=== PATIENT | male | born 1955 | race Caucasian/White ===

== ENCOUNTER 2023-12-20 08:50 | Outpatient (RCR) | payer OTHER, SELFPAY | END 2023-12-20 23:59 | disposition home or self-care (01) | LOC: RPT 08:50 | PROVIDERS: ATTENDING PHYSICIAN Family Medicine | DX: M25.50 Pain in unspecified joint (principal); M25.40 Effusion, unspecified joint; R53.1 Weakness; R09.1 Pleurisy; Z73.6 Limitation of activities due to disability; R26.89 Other abnormalities of gait and mobility | CPT/HCPCS: 97110; 97112; 97116 ==

== ENCOUNTER 2024-01-17 09:06 | Outpatient (RCR) | payer OTHER, SELFPAY | END 2024-01-17 23:59 | disposition home or self-care (01) | LOC: RPT 09:06 | PROVIDERS: ATTENDING PHYSICIAN Family Medicine | DX: R53.1 Weakness (principal); R09.1 Pleurisy; Z73.6 Limitation of activities due to disability; R26.89 Other abnormalities of gait and mobility; M25.551 Pain in right hip; M25.512 Pain in left shoulder; M62.81 Muscle weakness (generalized); M25.40 Effusion, unspecified joint; Z85.6 Personal history of leukemia; Z87.01 Personal history of pneumonia (recurrent); Z86.16 Personal history of COVID-19 | CPT/HCPCS: 97014; 97110; 97112; 97140; 97530; 97535 ==

== ENCOUNTER 2024-02-14 10:56 | Outpatient (RCR) | payer OTHER, SELFPAY | END 2024-02-14 23:59 | disposition home or self-care (01) | LOC: RPT 10:56 | PROVIDERS: ATTENDING PHYSICIAN Family Medicine | DX: M25.50 Pain in unspecified joint (principal); R53.1 Weakness; R09.1 Pleurisy; Z73.6 Limitation of activities due to disability; R26.89 Other abnormalities of gait and mobility; C91.10 Chronic lymphocytic leukemia of B-cell type not having achieved remission | CPT/HCPCS: 97110; 97112; 97535; 97763 ==

== ENCOUNTER 2024-03-13 10:45 | Outpatient (RCR) | payer OTHER, SELFPAY | END 2024-03-13 10:50 | disposition home or self-care (01) | LOC: RPT 10:45 | PROVIDERS: ATTENDING PHYSICIAN Family Medicine | DX: M25.551 Pain in right hip (principal); M25.40 Effusion, unspecified joint; R53.1 Weakness; R09.1 Pleurisy; Z73.6 Limitation of activities due to disability; R26.89 Other abnormalities of gait and mobility; C91.10 Chronic lymphocytic leukemia of B-cell type not having achieved remission; R26.2 Difficulty in walking, not elsewhere classified; R20.0 Anesthesia of skin; R20.2 Paresthesia of skin | CPT/HCPCS: 97110; 97112; 97116 ==

== ENCOUNTER → 2024-12-13 09:35 | Outpatient (REF) | payer OTHER, SELFPAY | LOC: HWRAD 09:35 | PROVIDERS: ATTENDING PHYSICIAN Family Medicine | DX: R05.1 Acute cough (principal); Z87.01 Personal history of pneumonia (recurrent) | CPT/HCPCS: 71046 ==

== ENCOUNTER → 2024-12-30 14:41 | Outpatient (REF) | payer OTHER, SELFPAY | LOC: HWRAD 14:41 | PROVIDERS: ATTENDING PHYSICIAN Family Medicine | DX: Z20.828 Contact with and (suspected) exposure to other viral communicable diseases (principal); J18.9 Pneumonia, unspecified organism | CPT/HCPCS: 71046 ==